=== PATIENT | male | born 1980 | race Caucasian/White ===

== ENCOUNTER 2022-09-11 04:19 | Emergency (ER) | payer OTHER, BC ==
[2022-09-11] MEDS: hydrALAZINE 20 MG/ML SDV IVPUSH ONE ×2 (04:54→05:40)
[2022-09-11 05:39] LABS: BLOOD UREA NITROGEN,BUN 26 mg/dL (7.0-18.0); CARBON DIOXIDE,CO2 18.5 mmol/L (21.0-32.0); CHLORIDE,CL 103 mmol/L (98-107); GLUCOSE RANDOM 159 mg/dL (74-106); POTASSIUM,K 3.6 mmol/L (3.5-5.1); SODIUM,NA 138 mmol/L (136-148)
[2022-09-11 06:19] VITALS: BP 136/94; PULSE 93
== END 2022-09-11 06:19 | disposition home or self-care (01) ==
LOC: MW.ED 04:19
DX: I16.0 Hypertensive urgency (principal); Z88.0 Allergy status to penicillin
CPT/HCPCS: 36415; 80048; 84484; 85025; 99284; J0360

== ENCOUNTER 2024-04-27 10:55 | Emergency (ER) | payer OTHER, BC ==
[2024-04-27 11:18] VITALS: BP 134/88; PULSE 98
[2024-04-27] MEDS: Cyclobenzaprine 10 MG Tab PO STA (11:27)
[2024-04-27] MEDS: traMADol 50 MG Tab PO STA (11:27)
[2024-04-27] MEDS: Ibuprofen 800 MG Tab PO STA (11:28)
== END 2024-04-27 12:50 | disposition home or self-care (01) ==
LOC: MW.ED 10:55
DX: S40.012A Contusion of left shoulder, initial encounter (principal); I10 Essential (primary) hypertension; Z79.899 Other long term (current) drug therapy; Z88.0 Allergy status to penicillin; Z75.8 Other problems related to medical facilities and other health care; W20.8XXA Other cause of strike by thrown, projected or falling object, initial encounter
CPT/HCPCS: 73030; 99283; A9270